=== PATIENT | female | born 2000 | race African-American/Black ===

== ENCOUNTER 2021-10-13 21:44 | Emergency (ER) | payer OTHER ==
[2021-10-13 22:17] VITALS: BP 117/73; PULSE 90; RESP 18; TEMP 98.1; BMI 24.2
[2021-10-13] MEDS ORDERED: ACETAMINOPHEN 325 MG TABLET (FP) PO ONE (23:37)
== END 2021-10-14 00:29 | disposition home or self-care (01) ==
LOC: JER 21:44
DX: S09.90XA Unspecified injury of head, initial encounter (principal); V49.50XA Passenger injured in collision with unspecified motor vehicles in traffic accident, initial encounter
CPT/HCPCS: 72100-TC-FY; 72170-TC-FY; 73030-TC-RT-FY; 73552-TC-RT-FY; 99285-25